=== PATIENT | male | born 1965 ===

== ENCOUNTER 2016-04-20 12:21 | Day surgery (SDC) | payer BC ==
[~2016-04-20] VITALS: Ht 174 cm; Wt 91.8 kg
[2016-04-20 13:04] VITALS: BP 123/77; PULSE 53; TEMP 97.8
[2016-04-20] MEDS ORDERED: MOTRIN 800800 MG/TAB PO (13:07)
[2016-04-20] MEDS ORDERED: B COMPLEX & B121 TAB PO (13:07)
[2016-04-20] MEDS ORDERED: GLUCOSAMINE 1000 PO (13:07)
[2016-04-20] MEDS ORDERED: CENTRUM SILVER1 TA2 PO (13:07)
[2016-04-20] MEDS ORDERED: ECHINACEA PURPU80 MG PO (13:08)
[2016-04-20 14:50] VITALS: BP 108/73; PULSE 63; TEMP 98.1
[2016-04-20 15:05] VITALS: BP 102/81; PULSE 71
[2016-04-20 15:20] VITALS: BP 117/75; PULSE 61
[2016-04-20 15:35] VITALS: BP 113/67; PULSE 50
== END 2016-04-20 15:51 | disposition home or self-care (01) ==
LOC: SDCO 12:21
DX: Z12.11 Encounter for screening for malignant neoplasm of colon (principal); K63.5 Polyp of colon; D12.8 Benign neoplasm of rectum; K57.30 Diverticulosis of large intestine without perforation or abscess without bleeding; F17.200 Nicotine dependence, unspecified, uncomplicated
CPT/HCPCS: OP; J2250; J3010; J7030

== ENCOUNTER 2016-07-14 08:56 | Emergency (ER) | payer BC ==
[~2016-07-14] VITALS: Ht 177.8 cm; Wt 94.5 kg
[~2016-07-14 08:56] MED LIST: B COMPLEX & B121 TAB PO; CENTRUM SILVER1 TA2 PO; ECHINACEA PURPU80 MG PO; GLUCOSAMINE 1000 PO; MOTRIN 800800 MG/TAB PO
[2016-07-14 09:01] VITALS: TEMP 96.4
[2016-07-14 09:49] LABS: BASO % 0.5 % (0.0-2.0); EOS # 0.2 (0.0-0.7); EOS % 2.1 % (0-4.0); GRAN # 4.3 (1.4-6.5); HEMATOCRIT 46.2 % (42.0-52.0); HEMOGLOBIN 15.8 g/dl (13.5-18.0); LYMPH # 2.7 (1.2-3.4); LYMPH % 34.3 % (20.0-51.0); MEAN CELL VOLUME 92 fl (80.0-100.0); MEAN CORPUSCULAR HEMOGLOBIN 32 pg (27.0-31.0); MEAN CORPUSCULAR HGB CONC 34 g/dl (33.0-37.0); MEAN PLATELET VOLUME 9.4 fl (7.4-10.4); MONO # 0.7 (0.1-0.6); MONO % 8.8 % (1.7-9.3); PLATELET COUNT 318 K/mm3 (130-400); RED BLOOD COUNT 5.02 M/mm3 (4.20-5.60); WHITE BLOOD COUNT 7.9 K/mm3 (4.8-10.8)
[2016-07-14 09:54] LABS: PROTHROMBIN TIME 10.9 SECONDS (9.7-12.8)
[2016-07-14 09:56] LABS: PARTIAL THROMBOPLASTIN TIME 33.9 SECONDS (26.0-37.0)
[2016-07-14 09:59] LABS: ALANINE AMINOTRANSFERASE 41 U/L (21-72); ALBUMIN 4.1 gm/dL (3.5-5.0); ALKALINE PHOSPHATASE 98 U/L (50-136); ANION GAP 11 mmol/L (7-16); BILIRUBIN,TOTAL 0.7 mg/dL (0.0-1.0); BLOOD UREA NITROGEN 16 mg/dL (9-20); CALCIUM 9.1 mg/dL (8.4-10.2); CARBON DIOXIDE 22 mmol/L (22-30); CHLORIDE 106 mmol/L (98-107); CREATININE, serum 0.82 mg/dL (0.66-1.25); GLUCOSE 100 mg/dL (74-106); SODIUM 139 mmol/L (137-145); TOTAL PROTEIN 6.7 gm/dL (6.4-8.2)
[2016-07-14 10:12] LABS: TROPONIN-I < 0.012 ng/mL (0.000-0.034)
[2016-07-14] MEDS ORDERED: NITRO-DUR0.1 MG/PAT TD (12:31)
[2016-07-14 13:30] VITALS: BP 149/96; PULSE 53
== END 2016-07-14 13:23 | disposition home or self-care (01) ==
LOC: COL.ER 08:56
PROVIDERS: Family Medicine
DX: R07.9 Chest pain, unspecified (principal); R00.1 Bradycardia, unspecified; F17.210 Nicotine dependence, cigarettes, uncomplicated; K21.9 Gastro-esophageal reflux disease without esophagitis; Z82.49 Family history of ischemic heart disease and other diseases of the circulatory system